=== PATIENT | female | born 1965 | race Caucasian/White ===

== ENCOUNTER → 2017-09-24 | Outpatient (CLI) | payer OTHER ==
--- NOTE | 2017-09-27 07:55 | MM ---
Reason for exam: screening (asymptomatic). Last mammogram was performed 4 years and 4 months ago. History: Patient had first child at age 35. Family history of breast cancer in paternal grandmother at age 40. Physical Findings: A clinical breast exam by your physician is recommended on an annual basis and results should be correlated with mammographic findings. MG Screening Mammo w CAD Bilateral CC and MLO view(s) were taken. Prior study comparison: May 23, 2013, CAD bilateral diagnostic mammogram. The breast tissue is extremely dense which could obscure a lesion on mammography. There is no discrete abnormality. ASSESSMENT: Negative, BI-RAD 1 RECOMMENDATION: Routine screening mammogram of both breasts in 1 year.
== END | disposition home or self-care (01) ==
LOC: RADMAMWWP 17:05
PROVIDERS: ATTEND Obstetrics & Gynecology
DX: Z12.31 Encounter for screening mammogram for malignant neoplasm of breast (principal)
CPT/HCPCS: 77067